=== PATIENT | female | born 1965 | race Caucasian/White ===

== ENCOUNTER 2016-04-25 16:53 | Outpatient (CLI) ==
[2015-03-10 18:29] VITALS: BMI 33.3
[2016-04-25 18:11] LABS: BASOPHILS # (AUTO) 0.1 K/uL (0-0.2); BASOPHILS % (AUTO) 0.7 % (0.0-3.0); EOSINOPHILS # (AUTO) 0.1 K/ul (0.0-0.7); EOSINOPHILS % (AUTO) 1.9 % (0.0-7.0); HEMATOCRIT 43.3 % (37.0-47.0); HEMOGLOBIN 14.4 g/dl (12.0-16.0); IMMATURE GRANULOCYTE % (AUTO) 0.3 % (0.0-5.0); LYMPHOCYTES # (AUTO) 2.4 K/uL (0.60-3.4); LYMPHOCYTES % (AUTO) 34.9 (10.0-50.0); MEAN CORPUSCULAR HEMOGLOBIN 30.3 pg (27.0-31.0); MEAN CORPUSCULAR HGB CONC 33.3 (31.8-35.4); MEAN CORPUSCULAR VOLUME 91.2 fl (81.0-99.0); MONOCYTES # (AUTO) 0.4 K/uL (0.4-2.0); MONOCYTES % (AUTO) 6.1 (0-10); NEUTROPHILS # (AUTO) 3.8 K/ul (2.0-6.9); NEUTROPHILS % (AUTO) 56.1; PLATELET COUNT 366 10^3/uL (140-440); RED BLOOD COUNT 4.75 10^6/ul (4.20-5.40); WHITE BLOOD COUNT 6.74 K/ul (4.6-10.2)
[2016-04-25 18:59] LABS: ALBUMIN 3.8 g/dL (3.4-5.0); ALBUMIN/GLOBULIN RATIO 1.03; ANION GAP 12.6; BILIRUBIN,TOTAL 0.21 mg/dL (0.00-1.20); BUN/CREATININE RATIO 18.75; CALCIUM 9.4 mg/dL (8.2-10.2); CHOL/HDL RATIO 5.1 (4.5-5.5); CREATININE 1.12 mg/dL (0.60-1.30); POTASSIUM 4.6 mmol/L (3.5-5.10); TOTAL PROTEIN 7.5 g/dL (6.4-8.2)
== END 2016-04-25 16:54 | disposition home or self-care (01) ==
LOC: LAB 16:53
PROVIDERS: ATTEND Nurse Practitioner Family
DX: E78.5 Hyperlipidemia, unspecified (principal)
CPT/HCPCS: 36415; 80053; 80061; 84439; 84443; 85025

== ENCOUNTER 2016-04-26 15:22 | Outpatient (CLI) ==
[2015-03-10 18:29] VITALS: BMI 33.3
--- NOTE | 2016-04-26 16:22 | DI ---
EXAM: Three views of the right foot. History: Right foot pain. Comparison: Right foot radiograph 11/29/2011 Findings: No acute fracture or dislocation. No abnormal calcifications or radiopaque foreign ja s. Joint spaces are preserved. Impression: No acute osseous abnormality.
== END 2016-04-26 15:23 | disposition home or self-care (01) ==
LOC: RAD 15:22
PROVIDERS: ATTEND Nurse Practitioner Family
DX: M79.671 Pain in right foot (principal)

== ENCOUNTER 2016-06-22 15:54 | Outpatient (CLI) ==
[2015-03-10 18:29] VITALS: BMI 33.3
[2016-06-22 16:44] LABS: ALBUMIN 4.1 g/dL (3.4-5.0); ALBUMIN/GLOBULIN RATIO 1.14; BILIRUBIN,TOTAL 0.47 mg/dL (0.00-1.20); BUN/CREATININE RATIO 19.35; CALCIUM 9.5 mg/dL (8.2-10.2); CREATININE 0.93 mg/dL (0.60-1.30); TOTAL PROTEIN 7.7 g/dL (6.4-8.2)
== END 2016-06-22 15:55 | disposition home or self-care (01) ==
LOC: LAB 15:54
PROVIDERS: ATTEND Nurse Practitioner Family
DX: E78.5 Hyperlipidemia, unspecified (principal); Z13.9 Encounter for screening, unspecified
CPT/HCPCS: 36415; 80053; 80061

== ENCOUNTER 2017-08-07 00:56 | Emergency (ER) ==
[2017-08-07 01:08] VITALS: BP 135/87; TEMP 98.3; BMI 36.7
--- NOTE | 2017-08-07 01:30 | ED.PDOC ---
General ED Provider: Dr. SOLANGE TAN Chief Complaint: Hand Pain/Injury Stated Complaint: Injured the right wrist while mowing the lawn, ever since hurts to move Time Seen by Physician: 01:28 Mode of Arrival: Walk-In Information Source: Patient Primary Care Provider: [facility] Nursing and Triage Documentation Reviewed and Agree: Yes Reviewed sepsis parameters & appropriate labs ordered?: Yes System Inflammatory Response Syndrome: Not Applicable Sepsis Protocol: For patient's 13 years and over: Temp is 96.8 and below OR 101 and greater Pulse >90 BPM Resp >20/minute Acutely Altered Mental Status Are patient's symptoms suggestive of a new infection, such as: -Pneumonia -Skin, Soft Tissue -Endocarditis -UTI -Bone, Joint Infection -Implantable Device -Acute Abdominal Infection -Wound Infection -Meningitis -Blood Stream Catheter Infection -Unknown Musculoskeletal Complaint Exam - Hand/Wrist Complaint/Exam Location of Pain: Reports: Right, Wrist Mechanism of Injury: Reports: Trauma Symptoms Are: Still present Onset of Pain: Reports: Immediate Initial Severity: Moderate Current Severity: Moderate Location: Reports: Discrete Alleviating: Reports: Elevation Aggravating: Reports: Movement Associated Signs and Symptoms: Denies: Swelling, Redness, Bruising, Fever, Weakness, Numbness, Tingling Dominant Hand: Right Related Surgical History: Reports: None Hand/Wrist Findings: Absent: Swelling, Ecchymosis, Abnormal contour Differential Diagnoses: Closed Fracture, Sprain, Strain Review of Systems - Review Of Systems Constitutional: Reports: No symptoms Eyes: Reports: No symptoms Ears, Nose, Mouth, Throat: Reports: No symptoms Respiratory: Reports: No symptoms Cardiac: Reports: No symptoms GI: Reports: No symptoms : Reports: No symptoms Musculoskeletal: Reports: Joint pain Skin: Reports: No symptoms Neurological: Reports: No symptoms Endocrine: Reports: No symptoms Hematologic/Lymphatic: Reports: No symptoms All Other Systems: Reviewed and Negative Past Medical History - Past Medical History Previously Healthy: Yes Endocrine: Reports: Dyslipidemia Cardiovascular: Reports: None Respiratory: Reports: None Hematological: Reports: None Gastrointestinal: Reports: None Genitourinary: Reports: None Neuro/Psych: Reports: None Musculoskeletal: Reports: None Cancer: Reports: None Last Menstrual Period: HYST IN 2004 - Surgical History General Surgical History: Reports: Unknown - Family History Family History: Reports: Unknown - Social History Smoking Status: Current every day smoker, Light tobacco smoker Hx Substance Use: No Alcohol Screening: None - Immunizations Tetanus Shot up to Date: Yes Physical Exam - Physical Exam Appearance: Well-appearing, No pain distress, Well-nourished Eyes: DANILO, EOMI, Conjunctiva clear ENT: Ears normal, Nose normal, Oropharynx normal Respiratory: Airway patent, Breath sounds clear, Breath sounds equal, Respirations nonlabored Cardiovascular: RRR, Pulses normal, No rub, No murmur GI/: Soft, Nontender, No masses, Bowel sounds normal, No Organomegaly Musculoskeletal: No edema, No calf tenderness, Limited ROM, Limited strength Skin: Warm, Dry, Normal color Neurological: Sensation intact, Motor intact, Reflexes intact, Cranial nerves intact, Alert, Oriented Psychiatric: Affect appropriate, Mood appropriate Critical Care Note - Critical Care Note Total Time (mins): 30 Course - Course Orders, Labs, Meds: Orders Category Date Time Status WRIST, RIGHT 3 VIEWS Stat RADS 08/07/17 01:27 Ordered Vital Signs: Temp Pulse Resp BP Pulse Ox 08/07/17 00:57 98.3 F 105 H 20 135/87 95 Departure - Departure Time of Disposition: 01:29 Disposition: HOME SELF-CARE Discharge Problem: Wrist sprain Qualifiers: Encounter type: initial encounter Laterality: right Qualified Code(s): S63.501A - Unspecified sprain of right wrist, initial encounter Instructions: Wrist Sprain (ED) Condition: Stable Pt referred to PMD for follow-up: Yes IPMP verified?: No Additional Instructions: Rest Hot pack f/u with [facility] in 2-3 days Allergies/Adverse Reactions: Allergies NSAIDS (Non-Steroidal Anti-Inflamma Adverse Reaction (Verified 08/07/17 01:07) history left renal cell carcinoma January 2005 Disposition Discussed With: Patient
[2017-08-07] MEDS ORDERED: NORCO 5-325 PO STA (01:31)
--- NOTE | 2017-08-07 02:06 | DI ---
EXAM: Three views of the right wrist. HISTORY: Injury and pain. FINDINGS: The bones are intact with no evidence of fracture. The joint spaces are maintained. There is soft tissue swelling in the hand and wrist. Impression: No evidence of fracture. Soft tissue swelling as described.
== END 2017-08-07 02:08 | disposition home or self-care (01) ==
LOC: ED 00:56
DX: S63.501A Unspecified sprain of right wrist, initial encounter (principal); X50.1XXA Overexertion from prolonged static or awkward postures, initial encounter; F17.210 Nicotine dependence, cigarettes, uncomplicated
CPT/HCPCS: 99282

== ENCOUNTER 2017-10-07 15:00 | Outpatient (CLI) | END 2017-10-07 15:01 | disposition home or self-care (01) | LOC: LAB 15:00 | PROVIDERS: ATTEND Emergency Medicine | DX: R19.7 Diarrhea, unspecified (principal) | CPT/HCPCS: 36415; 80053; 84443; 85025 ==

== ENCOUNTER 2017-10-23 09:18 | Observation (INO) ==
[2017-10-23 10:45] VITALS: BMI 34.7
[2017-10-23] MEDS ORDERED: GI COCKTAIL PO STA (11:48)
[2017-10-23] MEDS ORDERED: ASPIRIN CHEWABLE PO STA (11:48)
[2017-10-23] MEDS ORDERED: ZOFRAN 4 MG/2 ML IVP PRN (11:48)
[2017-10-23] MEDS ORDERED: MORPHINE 2 MG/ML SYRINGE IVP PRN (11:48)
[2017-10-23] MEDS ORDERED: TYLENOL PO PRN (11:51)
[2017-10-23] MEDS: SODIUM CHLORIDE 1,000 ML IV SCH (12:00)
[2017-10-23] MEDS: ZANTAC PO SCH ×2 (13:25→18:37)
--- NOTE | 2017-10-23 13:42 | DI ---
EXAM: Two views of the chest. History: Chest pain. Comparison: Chest radiograph 07/17/2014 Findings: Heart size is within normal limits. Prominent contour of the ascending aorta is similar t o the previous studies. No focal consolidation. No appreciable pleural fluid and no pneumothorax. No acute osseous abnormalities. Impression: No acute cardiopulmonary process. No change compared to the prior study.
[2017-10-23] MEDS ORDERED: NON-FORMULARY MEDICATION (Bupropion Hcl [Wellbutrin Sr] 150 MG) PO SCH (21:00)
[2017-10-23] MEDS ORDERED: WELLBUTRIN SR PO SCH ×2 (21:00)
[2017-10-24] MEDS: SODIUM CHLORIDE 1,000 ML IV SCH (00:29)
[2017-10-24] MEDS: ZANTAC PO SCH (06:04)
[2017-10-24] MEDS ORDERED: SYNTHROID PO SCH (08:30)
[2017-10-24] MEDS ORDERED: ZESTRIL PO SCH (09:00)
[2017-10-24] MEDS ORDERED: NON-FORMULARY MEDICATION (Lisinopril [Lisinopril] 20 MG) PO SCH (09:00)
[2017-10-24 09:47] VITALS: BP 107/76; TEMP 98.2
[2017-10-24] MEDS ORDERED: CARAFATE PO SCH (11:00)
--- NOTE | 2017-10-24 13:15 | US ---
EXAM: Thyroid ultrasound. History: Right-sided neck swelling. Comparison: None available. Technique: Multiple sonographic images through the thyroid gland were obtained. Color duplex Dopple r was used to interrogate vascular flow. Findings: The right lobe of the thyroid measures 4.9 cm x 2.8 cm x 2.7 cm and demonstrates a 3 cm complex nodul e which contains microcalcifications. Thyroid isthmus measures 0.2 cm in thickness. The left lobe of the thyroid measures 4.3 cm x 1.4 cm x 0.9 cm and is without discrete nodule identif ied. No extrathyroidal masses are identified. Impression: 3 cm complex nodule within the right thyroid lobe. Tissue sampling is recommended.
--- NOTE | 2017-10-24 19:57 | PCM.HOSP ---
- Observation Care Discharge [id number] OBS Care Discharge (75831): 10/24 - Initial Observation Care [id number] High Complexity 70 Minutes (61400): 10/23
[2017-10-24] MEDS ORDERED: LIPITOR PO SCH (21:00)
--- NOTE | 2017-10-25 08:51 | DS ---
DATE OF SERVICE: 10/24/17 FINAL DIAGNOSIS: 1. Chest pain noncardiac 2. Uncontrolled hypertension 3. Generalized anxiety disorder 4. Hypercholesterolemia 5. Thyromegaly 6. Renal cell carcinoma 7. Left nephrectomy 8. Cholecystectomy 9. Hysterectomy 10.Rotator cuff surgery DISCHARGE INSTRUCTIONS: Discharge the patient home. Followup in the [facility] within 5-7 days. Continue taking the Zantac 300mg twice a day. No spicy food and no fried food. MEDICATIONS AT DISCHARGE: Wellbutrin Lisinopril Ranitidine NEW PRESCRIPTIONS: Levothyroxine 25mg PO daily Carafate 1gram AC/HS Simvastatin 20mg PO daily DIET INSTRUCTIONS: Cardiac and healthy ACTIVITY: As much as tolerated DISEASE SPECIFIC EDUCATION: Uncontrolled hypertension risk of stroke and coronary artery disease been discussed Chest pain Peptic ulcer disease discussed and avoid spicy food and fried food. HOSPITAL COURSE: Saturday 52 year old female who works at the [employer] came to the office with complains of the midsternal chest pain. Been having some heaviness. Blood pressure was 133/103. At that time a dose of Clonidine was given at the [facility] and the patient was admitted to the hospital for chest pain, rule out ACS. EKG normal sinus. D-Dimer 334. Sodium, potassium and cardiac enzymes are negative. Urine drug screen is negative. Cholesterol panel was positive for the triglycerides and the total cholesterol. TSH elevated. Meanwhile we obtained the chest x-ray which was negative. There was swelling in the neck. Thyroid ultrasound was done which showed thyroid nodule on the right side. Suggested to have biopsy. Dr Andrew was courteous enough to do the stress test and echocardiogram both were negative for the heart problems. Meanwhile with the given Clonidine the patient's blood pressure was under control and did not have any problems. The patient's home medication have been resumed. Did not have any more chest pains. The problem is most likely from the acid reflux and GERD. The patient been suggested for the decrease in spicy food and fried food. Continue the stomach medication and will get an outpatient GI consultation. TIME SPENT: MORE THAN 65 MINUTES MTDD
--- NOTE | 2017-10-25 10:48 | STRESSECHO ---
Date of Test: 10/24/17 Ordering Physician: DR. SOLANGE TAN Occupation: [employer] [facility] Reason for Exam: CHEST PAIN, HYPERTENSION Smoking History: 15 PK YRS Height: 63" Weight: 196 LBS Current Medications: WELLBUTRIN, LISINOPRIL, RANITIDINE Resting EKG: SINUS RHYTHM/ NO ACUTE CHANGES Target Heart Rate: 144/170 S-T SEGMENT STAGE MPH/GRADE HEART RATE BPM BLOOD PRESSURE MMHG RHYTHM +/- ELEVATION DEPRESSION SYMPTOMS,COMMENTS AT REST 68 112/70 SR X NONE 1 1.7/10% 130 150/80 SR X NONE 2 2.5/12% 3 3.4/14% 4 4.2/16% 5 5.0/18% Immediately After 145 160/78 SR X FATIGUE Minutes Post Exercise 5:00 75 SR X NO COMMENTS Minutes Post Exercise DURATION OF EXERCISE: 4:02 MAXIMUM HEART RATE REACHED: 145 BPM REASON FOR TERMINATION: FATIGUE 96% OXYGEN SATURATION WITH EXERCISE ON ROOM AIR METS 7.0 INTERPRETATION: 1. NO EVIDENCE OF ISCHEMIA BY ST-T WAVE 2. NO CHEST PAIN OR CHEST DISCOMFORT 3. BLOOD PRESSURE RESPONSE: NORMAL AT REST AND WITH EXERCISE 4. NO ARRHYTHMIAS NORMAL LEFT VENTRICULAR CONTRACTILITY--RESTING AND POST EXERCISE MTDD
--- NOTE | 2017-10-25 10:52 | ECHOSTRESS ---
Date of Exam: 10/24/17 Ordering Physician: DR. SOLANGE TAN Reason for Echo: CHEST PAIN, HTN, STRESS TEST--NO ISCHEMIA M-Mode Normal Adult Results LV Dimensions Normal Adult Results AoV Opening excursions >1.6 LVEDD-base- 3.5-5.8 Ao root dimensions 2.0-3.7 LVESD-base- 3.1-4.6 L. Atrium dimensions 1.9-3.8 Post. Wall thickness 0.8-1.1 IV septum (thickness) 0.7-1.2 Post. Wall excursion 0.72-1.3 Septal motion Systolic motion R. Ventricular cavity 1.5-2.0 LVEF 60% Paradoxical septal wall motion 2-D: NORMAL LEFT VENTRICULAR CONTRACTILITY--RESTING AND POST EXERCISE M-MODE: MV: AV: TV: PV: CHAMBER SIZE: WALL MOTION: NORMAL LEFT VENTRICULAR CONTRACTILITY--RESTING AND POST EXERCISE PERICARDIUM: INTERPRETATION: 1. NORMAL LEFT VENTRICULAR CONTRACTILITY--RESTING AND POST EXERCISE MTDD
--- NOTE | 2017-10-25 10:56 | ECHO2D ---
Date of Exam: 10/24/17 Ordering Physician: DR. SOLANGE TAN Room #: [id number] Reason for Echo: CHEST PAIN, HTN M-Mode Normal Adult Results LV Dimensions Normal Adult Results AoV Opening excursions >1.6 >1.6 LVEDD-base- 3.5-5.8 4.8 Ao root dimensions 2.0-3.7 3.5 LVESD-base- 3.1-4.6 L. Atrium dimensions 1.9-3.8 3.2 Post. Wall thickness 0.8-1.1 1.1 IV septum (thickness) 0.7-1.2 1.2 Post. Wall excursion 0.72-1.3 NORMAL Septal motion NORMAL Systolic motion R. Ventricular cavity 1.5-2.0 NORMAL LVEF 60% 55% Paradoxical septal wall motion NORMAL 2-D : 2-D M Mode Echocardiogram was performed using apical four chamber and left parasternal long and short axis views. Mitral, tricuspid and aortic valves appear to be normal. Contractility of the left ventricle seems to be normal, so is the cavity size. Left atrial cavity size and aortic root appear to be normal. There is no pericardial effusion. There is no thrombus noted in the left ventricular or left aortic cavity. No mitral valve prolapse noted. M-MODE: MV: NORMAL AV: NORMAL TV: NORMAL PV: CHAMBER SIZE: NORMAL WALL MOTION: NORMAL PERICARDIUM: NORMAL INTERPRETATION: 1. BORDERLINE LEFT VENTRICULAR HYPERTROPHY 2. NORMAL VALVES 3. NORMAL LEFT VENTRICULAR CONTRACTILITY MTDD
== END 2017-10-24 13:55 | disposition home or self-care (01) ==
LOC: MEDSURG A 09:18
PROVIDERS: ADMIT Emergency Medicine; ATTEND Emergency Medicine
DX: R07.2 Precordial pain (principal); R07.89 Other chest pain; I16.0 Hypertensive urgency; I10 Essential (primary) hypertension; F41.1 Generalized anxiety disorder; E78.00 Pure hypercholesterolemia, unspecified; E01.0 Iodine-deficiency related diffuse (endemic) goiter
CPT/HCPCS: 36415; 80053; 80061; 80306; 81001; 82550; 84443; 84484; 85025; 85379; 93005; 93010

== ENCOUNTER 2018-05-09 16:22 | Outpatient (CLI) | END 2018-05-09 16:23 | disposition home or self-care (01) | LOC: LAB 16:22 | PROVIDERS: ATTEND Orthopaedic Surgery | DX: Z01.812 Encounter for preprocedural laboratory examination (principal) | CPT/HCPCS: 36415; 80053; 85025 ==

== ENCOUNTER 2018-06-30 05:16 | Outpatient (CLI) | END 2018-06-30 05:17 | disposition home or self-care (01) | LOC: LAB 05:16 | PROVIDERS: ATTEND Nurse Practitioner Family | DX: Z00.00 Encounter for general adult medical examination without abnormal findings (principal) | CPT/HCPCS: 36415; 80053; 80061; 83036; 84443; 85025 ==

== ENCOUNTER 2018-07-11 10:10 | Outpatient (CLI) | END 2018-07-11 10:11 | disposition home or self-care (01) | LOC: CAR 10:10 | PROVIDERS: ATTEND Nurse Practitioner Family | DX: R07.9 Chest pain, unspecified (principal); R00.2 Palpitations; E03.9 Hypothyroidism, unspecified; I10 Essential (primary) hypertension | CPT/HCPCS: 36415; 80053; 84443; 84484; 85025; 93005; 93010 ==

== ENCOUNTER 2018-07-11 10:50 | Outpatient (CLI) | END 2018-07-11 10:51 | disposition home or self-care (01) | LOC: RHC-LAB 10:50 → FCC-LAB 10:51 | PROVIDERS: ATTEND Nurse Practitioner Family | DX: R00.2 Palpitations (principal); E03.9 Hypothyroidism, unspecified; I10 Essential (primary) hypertension; R07.9 Chest pain, unspecified | CPT/HCPCS: 36415; 80053; 84443; 84484; 85025 ==

== ENCOUNTER 2018-07-24 06:34 | Outpatient (CLI) ==
--- NOTE | 2018-07-24 09:29 | ECHO2D ---
Date of Exam: 07/24/18 Ordering Physician: MISTY THOMSON APRN Room #: OP Reason for Echo: PALPITATIONS, CHEST PAIN M-Mode Normal Adult Results LV Dimensions Normal Adult Results AoV Opening excursions >1.6 >1.6 LVEDD-base- 3.5-5.8 4.7 Ao root dimensions 2.0-3.7 3.6 LVESD-base- 3.1-4.6 L. Atrium dimensions 1.9-3.8 3.5 Post. Wall thickness 0.8-1.1 1.1 IV septum (thickness) 0.7-1.2 1.1 Post. Wall excursion 0.72-1.3 NORMAL Septal motion 0.5 Systolic motion R. Ventricular cavity 1.5-2.0 NORMAL LVEF 60% 50% Paradoxical septal wall motion NORMAL 2-D : 2-D M Mode Echocardiogram was performed using apical four chamber and left parasternal long and short axis views. Mitral, tricuspid and aortic valves appear to be normal. Contractility of the left ventricle seems to be normal, so is the cavity size. Left atrial cavity size and aortic root appear to be normal. There is no pericardial effusion. There is no thrombus noted in the left ventricular or left aortic cavity. No mitral valve prolapse noted. MILDLY HYPOKINETIC SEPTUM M-MODE: MV: NORMAL AV: NORMAL TV: NORMAL PV: CHAMBER SIZE: NORMAL WALL MOTION: MILDLY HYPOKINETIC SEPTUM PERICARDIUM: NORMAL INTERPRETATION: 1. MILDLY HYPOKINETIC STIFF SEPTUM 2. BORDERLINE LEFT VENTRICULAR HYPERTROPHY 3. NORMAL VALVES 4. NORMAL LEFT VENTRICLE AND LEFT ATRIAL SIZE MTDD
== END 2018-07-24 06:35 | disposition home or self-care (01) ==
LOC: CAR 06:34
PROVIDERS: ATTEND Nurse Practitioner Family
DX: R00.2 Palpitations (principal); R07.9 Chest pain, unspecified

== ENCOUNTER 2018-07-25 06:38 | Outpatient (CLI) ==
--- NOTE | 2018-07-25 09:37 | STRESSECHO ---
Date of Test: 07/25/18 Ordering Physician: MISTY THOMSON APRN Occupation: [employer] [employer] [facility] [employer] Reason for Exam: CHEST PAIN, PALPITATIONS Smoking History: QUIT 05/06 Height: 63 " Weight: 203 LBS Current Medications: WELLBUTRIN, HCTZ, SUCRALFATE, LEVOTHYROXINE, LISINOPRIL Resting EKG: SINUS RHYTHM/ NO ACUTE CHANGES Target Heart Rate: 170/144 S-T SEGMENT STAGE MPH/GRADE HEART RATE BPM BLOOD PRESSURE MMHG RHYTHM +/- ELEVATION DEPRESSION SYMPTOMS AT REST 72 BPM 102/80 MMHG SR X NONE 1 1.7/10% 123 BPM 130/90 MMHG SR X NONE 2 2.5/12% 3 3.4/14% 4 4.2/16% 5 5.0/18% Immediately After 145 BPM 142/88 MMHG SR X SHORT OF AIR Minutes Post Exercise 2:30 89 BPM 122/88 MMHG SR X NONE Minutes Post Exercise 5:00 82 BPM 110/86 MMHG SR X NONE DURATION OF EXERCISE: 5:30 MAXIMUM HEART RATE REACHED: 145 BPM REASON FOR TERMINATION: SHORT OF AIR 97% OXYGEN SATURATION WITH EXERCISE ON ROOM AIR INTERPRETATION: 1. NO EVIDENCE OF ISCHEMIA BY ST-T WAVE 2. NO CHEST PAIN OR DISCOMFORT 3. NO ARRHYTHMIAS 4. BLOOD PRESSURE RESPONSE: NORMAL LEFT VENTRICULAR CONTRACTILITY--MILDLY HYPOKINETIC SEPTUM AT REST--IMPROVED CONTRACTILITY OF LEFT VENTRICLE WITH EXERCISE MTDD
--- NOTE | 2018-07-25 09:40 | ECHOSTRESS ---
Date of Exam: 07/25/18 Ordering Physician: MISTY THOMSON APRN Reason for Echo: CHEST PAIN, PALPITATIONS, STRESS TEST--NO ISCHEMIA M-Mode Normal Adult Results LV Dimensions Normal Adult Results AoV Opening excursions >1.6 LVEDD-base- 3.5-5.8 Ao root dimensions 2.0-3.7 LVESD-base- 3.1-4.6 L. Atrium dimensions 1.9-3.8 Post. Wall thickness 0.8-1.1 IV septum (thickness) 0.7-1.2 Post. Wall excursion 0.72-1.3 Septal motion Systolic motion R. Ventricular cavity 1.5-2.0 LVEF 60% Paradoxical septal wall motion 2-D: MILDLY HYPOKINETIC SEPTUM AT REST AND IMPROVED LEFT VENTRICLE CONTRACTILITY WITH EXERCISE M-MODE: MV: AV: TV: PV: CHAMBER SIZE: WALL MOTION: MILDLY HYPOKINETIC SEPTUM AT REST AND IMPROVED LEFT VENTRICLE CONTRACTILITY WITH EXERCISE PERICARDIUM: INTERPRETATION: 1. MILDLY HYPOKINETIC SEPTUM AT REST AND IMPROVED LEFT VENTRICLE CONTRACTILITY WITH EXERCISE MTDD
--- NOTE | 2018-07-28 10:46 | HOLTER ---
PATIENT INFORMATION AND COMMENTS Attending Physician: MISTY THOMSON APRN Indications: PALPITATIONS, CHEST PAIN __ Patient Medications: WELLBUTRIN, HCTZ, SUCRAFLATE, LEVOTHYROXINE, LISINOPRIL, RANITIDINE __ Pre-procedure Summary: Protocol: Standard Heart Rate Started: 07/25/18802 Minimum: 67 BPM Weight: 203 LBS Ended: 07/26/18802 Maximum: 150 BPM Height: 63" Duration: 24 HOURS Average: 103 BPM _ INTERPRETATIONS/OBSERVATIONS: 1. BASIC RHYTHM: SINUS RATE 67 BPM TO 150 BPM, AVERAGE 100 BPM 2. INFREQUENT/ RARE PAC'S AND PVC'S 3. NO ST-T WAVE CHANGES FROM BASELINE 4. ACTIVITY LOG NOT KEPT MTDD
== END 2018-07-25 06:39 | disposition home or self-care (01) ==
LOC: CAR 06:38
PROVIDERS: ATTEND Nurse Practitioner Family
DX: R00.2 Palpitations (principal); R07.9 Chest pain, unspecified
CPT/HCPCS: 93227

== ENCOUNTER 2018-10-15 11:30 | Outpatient (CLI) | END 2018-10-15 11:31 | disposition home or self-care (01) | LOC: RHC-LAB 11:30 → FCC-LAB 11:31 | PROVIDERS: ATTEND Family Medicine | DX: E78.2 Mixed hyperlipidemia (principal); I10 Essential (primary) hypertension; M25.521 Pain in right elbow; M25.522 Pain in left elbow; M25.571 Pain in right ankle and joints of right foot; M25.572 Pain in left ankle and joints of left foot; G89.29 Other chronic pain | CPT/HCPCS: 36415; 80053; 80061; 82550 ==